=== PATIENT | female | born 1990 | race American Indian/Alaskan Native ===

== ENCOUNTER 2021-09-22 13:24 | Emergency (ER) | payer OTHER ==
[2021-09-22] MEDS ORDERED: ACETAMINOPHEN 325 MG TAB PO ONE (13:50)
[2021-09-22 13:53] VITALS: BP 111/63
== END 2021-09-22 17:51 | disposition left against medical advice (07) ==
LOC: ED 13:24
DX: R52 Pain, unspecified (principal); Z53.21 Procedure and treatment not carried out due to patient leaving prior to being seen by health care provider